=== PATIENT | female | born 1970 | race Caucasian/White ===

== ENCOUNTER 2018-04-12 20:47 | Emergency (ER) | payer OTHER, SELFPAY ==
[2018-04-12 20:56] VITALS: BP 143/85; PULSE 75; RESP 18; TEMP 36.1; O2SAT 99; BMI 36.6
--- NOTE | 2018-04-12 20:58 | DI.RAD.S_ITS ---
PROCEDURE: XR FINGER RT MIN 2V INDICATIONS: bent thumb back TECHNIQUE: AP hand, 2 views of the right first finger(s) acquired. COMPARISON: None. FINDINGS: Bones: No fractures or dislocations. No suspicious bony lesions. Well-corticated area of calcification in the palmar aspect of the first interphalangeal joint. Soft tissues: No suspicious soft tissue calcifications. IMPRESSION: Well-corticated area of calcification at the palmar aspect of the first interphalangeal joint most consistent with the sequelae of previous trauma. Please correlate with clinical point tenderness at this site to exclude an acute fracture. Dictated by: Matti Laboy M.D. on 04/12/2018 at 21:10 Approved by: Matti Laboy M.D. on 04/12/2018 at 21:12
--- NOTE | 2018-04-12 21:11 | ED_ITS ---
HPI - Extremity Injury (Upper) General Chief Complaint: Extremity Injury, Upper Stated Complaint: RT HAND THUMB INJURY Time Seen by Provider: 04/12/18 21:04 Source: patient Mode of arrival: ambulatory Limitations: no limitations History of Present Illness HPI narrative: Patient presents to the emergency department today with a chief complaint of right thumb pain. She was walking her dog when it escaped from his collar and she attempted to catch it and reached out her right hand, catching her thumb a fence post and felt hip and back. She is convinced it is broken. She has decreased range of motion secondary to pain. She denies other injury MD complaint: injury to: right Onset (ago): hour(s) Other injuries: none Handedness: right Place: outdoors Severity: moderate Relieving factors: immobilization Exacerbating factors: movement of extremity Context: direct blow Related Data Allergies Allergy/AdvReac Type Severity Reaction Status Date / Time codeine Allergy Verified 04/12/18 20:56 procaine [From Novocain] Allergy Verified 04/12/18 20:56 Sulfa (Sulfonamide Allergy Verified 04/12/18 20:56 Antibiotics) Review of Systems Review of Systems All systems reviewed & are unremarkable except as noted in HPI and below Constitutional Denies chills, Denies fever(s), Denies lethargy and Denies weakness Eyes Denies change in vision, Denies eye discharge, Denies irritation and Denies loss of vision ENT Ears, Nose, Mouth, and Throat: Denies change in voice, Denies neck pain and Denies sore throat Cardiovascular Denies chest pain, Denies irregular heart rhythm, Denies lightheadedness, Denies palpitations, Denies dyspnea, Denies dyspnea on exertion and Denies orthopnea Respiratory Denies cough, Denies dyspnea, Denies dyspnea on exertion and Denies wheezing Gastrointestinal Gastrointestinal: Denies abdominal pain, Denies change in bowel habits, Denies diarrhea, Denies nausea and Denies vomiting Genitourinary Denies hematuria, Denies flank pain, Denies urinary incontinence and Denies urinary urgency Musculoskeletal Reports joint swelling, Reports limited range of motion, Denies neck pain and Reports stiffness Integumentary/Breasts Denies pruritus, Denies erythema, Denies rash and Denies wounds Neurologic Denies confusion, Denies loss of vision and Denies weakness Psychiatric Denies anxiety, Denies confusion, Denies depression, Denies homicidal ideation and Denies suicidal ideation Endocrine Denies palpitations Hematologic/Lymphatic Denies easy bruising Allergic/Immunologic Denies wheezing PFSH Social History Smoking Status: Never smoker Exam Narrative Exam Narrative: Pleasant 47-year-old female in mild distress, splinting her right thumb Initial Vital Signs Initial Vital Signs: Vital Signs Temperature 97.0 F L 04/12/18 20:56 Pulse Rate 75 04/12/18 20:56 Respiratory Rate 18 04/12/18 20:56 Blood Pressure 143/85 H 04/12/18 20:56 Pulse Oximetry 99 04/12/18 20:56 Const General: cooperative and well developed Nutritional Appearance: well nourished Orientation: alert, awake, oriented x3 and not confused HENMT Head: normocephalic and atraumatic Ears: external ears normal and TM's normal bilaterally Nose: external nose normal and No nasal discharge Face and sinus: sinuses nontender, face symmetric, no sinus tenderness and No dry mucous membranes Mouth: oral mucosae normal and moist mucous membranes Teeth and gingiva: dentition normal Throat: tonsils normal and uvula midline Resp Effort & Inspection: normal respiratory effort, able to speak in complete sentences, no respiratory distress and no use of accessory muscles Auscultation: clear to auscultation bilaterally, no rales, no rhonchi and no wheezes GI Inspection: non-distended Palpation: soft, no hepatosplenomegaly, No guarding, No pulsatile mass and No tender Auscultation: normal bowel sounds Skin General: no rashes or lesions noted, No jaundice and No petechiae Neuro General: alert, awake and oriented x3 Cognition: normal cognition Speech: speech normal Gait: normal gait Motor: muscle tone normal throughout Sensory Exam: no sensory deficits noted Extrem Right upper extremity: hand Details: abnormal ROM of finger Details: pain with active ROM, pain with passive ROM and unable to flex and swelling Procedures Orthopedic Splinting/Casting Injury #1: Side: right Upper Extremity Injury Location: finger Upper Extremity Immobilizer: thumb spica Course Orders Ordered: ED Orders 04/12/18 20:58 XR finger RT min 2V Stat Vital Signs - 8 hr 04/12/18 20:56 04/12/18 21:33 Temperature 97.0 F L Pulse Rate 75 72 Respiratory Rate 18 16 Blood Pressure 143/85 H Blood Pressure [Left Arm] 127/74 H Pulse Oximetry 99 95 MDM - Extremity Injury (Upper) Differential Diagnosis Differential diagnosis: Likely sprain and strain of wrist, fracture of wrist, finger sprain, dislocation of finger and fracture of hand Imaging Data Finger Xray: Attestation: I personally reviewed and interpreted this imaging study as follows: My impression: KOFFI Radiologist's impression: PROCEDURE: XR FINGER RT MIN 2V INDICATIONS: bent thumb back TECHNIQUE: AP hand, 2 views of the right first finger(s) acquired. COMPARISON: None. FINDINGS: Bones: No fractures or dislocations. No suspicious bony lesions. Well- corticated area of calcification in the palmar aspect of the first interphalangeal joint. Soft tissues: No suspicious soft tissue calcifications. IMPRESSION: Well-corticated area of calcification at the palmar aspect of the first interphalangeal joint most consistent with the sequelae of previous trauma. Please correlate with clinical point tenderness at this site to exclude an acute fracture. Dictated by: Matti Laboy M.D. on 04/12/2018 at 21:10 Approved by: Matti Laboy M.D. on 04/12/2018 at 21:12 Discharge Plan Departure Patient Disposition: Home, Self-Care Clinical Impression: Fracture of thumb Discharge Date/Time: 04/12/18 21:41 Interventions: ED Discharge Assessment Last Done: 04/12/18 21:41 Instructions: DI for Finger Fracture Activity Restrictions/Additional Instructions: *You have been diagnosed with [ right thumb injury: Ulnar collateral ligament injury versus possible small fracture ] *What to do: * ice, 20 min on 20 min off for comfort *Follow up with your primary care provider in about a week for follow-up *Return to ER if you should have any new, worsening or concerning symptoms
[2018-04-12 21:33] VITALS: BP 127/74; PULSE 72; RESP 16; O2SAT 95
== END 2018-04-12 21:41 | disposition home or self-care (01) ==
PROVIDERS: Emergency Provider Emergency Medicine
DX: S62.501A Fracture of unspecified phalanx of right thumb, initial encounter for closed fracture (principal); W23.1XXA Caught, crushed, jammed, or pinched between stationary objects, initial encounter
CPT/HCPCS: 29280; 73140; 99282; 99283